=== PATIENT | male | born 1955 | race Asian ===

== ENCOUNTER 2019-11-17 17:16 | Emergency (ER) | payer BC ==
[~2019-11-17] VITALS: Ht 180.3 cm; Wt 82.1 kg
[2019-11-17 17:46] VITALS: BP 170/80; TEMP 99.3
[2019-11-17 18:23] LABS: PLATELET COUNT 212 K/uL (142-355)
[2019-11-17 18:29] LABS: POTASSIUM 3.1 mmol/L (3.6-5.2); SODIUM 142 mmol/L (136-145)
== END 2019-11-17 18:49 | disposition home or self-care (01) ==
LOC: ED 17:16
PROVIDERS: Emergency Medicine
DX: D64.9 Anemia, unspecified (principal); M79.641 Pain in right hand
CPT/HCPCS: 36415; 80053; 82550; 82553; 84484; 85027; 93005; 99283